=== PATIENT | female | born 1995 | race Caucasian/White ===

== ENCOUNTER → 2017-11-29 13:24 | Outpatient (CLI) | payer SELFPAY ==
[2017-11-29 17:34] LABS: Chlamydia Trachomatis by PCR Negative (Negative); Neisserai gonorrhoeae by PCR Negative (Negative)
[2017-11-29 17:35] LABS: Probe Check PASS; Sample Adequacy Control PASS; Specimen Processing Control PASS
[2017-12-07 12:49] LABS: HPV Reflexed? NOT INDICATED
== END ==
PROVIDERS: Visit Provider Obstetrics & Gynecology
DX: Z12.4 Encounter for screening for malignant neoplasm of cervix (principal); Z11.3 Encounter for screening for infections with a predominantly sexual mode of transmission
CPT/HCPCS: 87491; 87591; 88175; G0145

== ENCOUNTER → 2018-01-12 14:56 | Outpatient (CLI) | payer OTHER, SELFPAY ==
[2018-01-12 16:11] LABS: Color, Urine Yellow (Yellow); Glucose, Dipstick Normal (Normal); Ketone-Dipstick Negative (Negative); Leukocyte Esterase-Dipstick 25 /ul (Negative); Nitrite-Dipstick Negative (Negative); Occult Blood-Urine Negative /ul (Negative); Protein-Dipstick Negative (Negative); Specific Gravity, Urine 1.015 (1.002-1.030); Urine Bilirubin Dipstick Negative (Negative); Urine Clarity Clear (Clear); Urine Urobilinogen Normal (Normal)
[2018-01-12 17:48] LABS: Thyroid Stim Hormone (TSH) 3.05 uIU/mL (0.358-3.74)
[2018-01-12 17:50] LABS: Absolute Lymphocyte Count 1.82 X10^3/ul (0.83-4.51); Absolute Neutrophil Count 7.9 X10^3/uL (2.0-7.7); Basophil# 0.02 X10^3/uL; Basophil% 0.2 % (0-1); Eosinophil# 0.09 X10^3/uL; Eosinophils% 0.9 % (0-5); Hematocrit 33.6 % (37-47); Hemoglobin 11.6 g/dl (12.0-15.0); Lymphocyte # 1.82 X10^3/ul (4.0); Lymphocyte % 17.3 % (19-41); Mean Corp Hgb Conc 34.5 g/gl (32-36); Mean Corpuscular Hgb 30.5 pg (27.0-32.0); Mean Corpuscular Volume 88.4 fL (81-99); Monocyte# 0.67 X10^3/uL; Monocyte% 6.4 % (0-10); Platelet Count 257 K/mm3 (150-450); RBC Distribution Width CV 12.7 % (11.6-14.6); RBC Distribution Width SD 39.3 fl (35.1-43.9); White Blood Count 10.5 K/mm3 (4.4-11.0)
[2018-01-12 18:09] LABS: POSITIVE COUNT NO; POSITIVE DIFFERENTIAL NO; POSITIVE MORPHOLOGY NO
[2018-01-12 18:28] LABS: HIV - WCH Non-Reactive (Nonreactive); Rubella IgG 47.7 IU/mL
[2018-01-15 11:10] LABS: HEPATITIS B SURFACE AG Negative (Negative); Hep C Antibodies <0.1 s/co ratio (0.0-0.9)
[2018-01-19 03:49] LABS: Prenatal RPR NONREACTIVE (NONREACTIVE)
== END ==
PROVIDERS: Visit Provider Obstetrics & Gynecology
DX: Z34.82 Encounter for supervision of other normal pregnancy, second trimester (principal)
CPT/HCPCS: 36415; 81002; 84443; 85025; 86703; 86762; 86803; 87340

== ENCOUNTER → 2018-04-03 10:09 | Outpatient (CLI) | payer OTHER, SELFPAY ==
[2018-04-03 13:59] LABS: Hematocrit 32.5 % (37-47); Hemoglobin 10.8 g/dl (12.0-15.0); Mean Corp Hgb Conc 33.2 g/gl (32-36); Mean Corpuscular Hgb 31.2 pg (27.0-32.0); Mean Corpuscular Volume 93.9 fL (81-99); Platelet Count 250 K/mm3 (150-450); RBC Distribution Width CV 12.8 % (11.6-14.6); RBC Distribution Width SD 42.4 fl (35.1-43.9); Red Blood Count 3.46 M/mm3 (4.2-5.4); White Blood Count 10.9 K/mm3 (4.4-11.0)
[2018-04-03 14:05] LABS: Glucose Challenge Gest 1H 50g 70 mg/dL (70-140)
[2018-04-03 14:08] LABS: Scan Indicated on CBC? Y/N NO
== END ==
PROVIDERS: Visit Provider Obstetrics & Gynecology
DX: Z34.82 Encounter for supervision of other normal pregnancy, second trimester (principal)
CPT/HCPCS: 36415; 82950; 85027

== ENCOUNTER → 2018-06-01 14:51 | Outpatient (CLI) | payer OTHER, SELFPAY | PROVIDERS: Visit Provider Obstetrics & Gynecology | DX: Z36.85 Encounter for antenatal screening for Streptococcus B (principal) | CPT/HCPCS: 87081 ==

== ENCOUNTER 2018-07-09 20:01 | Inpatient (IN) | payer SELFPAY ==
[2018-07-09 20:28] VITALS: BMI 28.0
[2018-07-09] MEDS: Lactated Ringers 1,000 ML 50 ML IV (21:00)
[2018-07-09 21:17] LABS: Hematocrit 32.8 % (37-47); Mean Corp Hgb Conc 33.5 g/gl (32-36); Mean Corpuscular Hgb 30.7 pg (27.0-32.0); Mean Corpuscular Volume 91.6 fL (81-99); Mean Platelet Vol. 10.2 fl (6.2-12.0); Platelet Count 241 K/mm3 (150-450); RBC Distribution Width CV 12.6 % (11.6-14.6); RBC Distribution Width SD 42.2 fl (35.1-43.9); Red Blood Count 3.58 M/mm3 (4.2-5.4); Scan Indicated on CBC? Y/N NO; White Blood Count 13.2 K/mm3 (4.4-11.0)
[2018-07-09] MEDS: Oxytocin 30 units/NS 500 ml 30 UNITS/500 ML IV.SOLN IV (21:26)
--- NOTE | 2018-07-09 23:37 | PCM.PN.BLA ---
Progress Note 41 4/7 wk EGA by first trimester sono. Induction 2/2 postdates and anhydramnios on sono. Pitocin at 1 mIU/min EFM: 130-140s min to avg variability. Accels to 160s. Occasional quick variable to 110 no deep variables noted. ? maternal HR with intermittent tracing occasionally noted. UCs irregular with UC q 8-10 min , some prolonged UCs noted. A/P: 41 4/7 wk induction. postdates and anhydramnios on sono 07/09/18. Plan low dose pitocin overnight. AROM in AM. plans no epidural. Watch tolerance of labor. Deep variable on NST in ofc. Gr 3 placenta. continue induction.
[2018-07-10] MEDS: Lactated Ringers 1,000 ML 50 ML IV ×2 (03:00→06:56)
--- NOTE | 2018-07-10 04:45 | PCM.PN.BLA ---
Progress Note PROGRESS NOTE Induction 41 5/7 wk Gr 3 placenta, anhydramnios Pitocin remains at 1 mIU/min overnight EFM 120-130s , avg variability. Accelerations noted. Early decelerations, occasional quick variable to 90-100 bpm less than 10 sec UCs q 8-11 but some prolonged, lasting 3-5 mins Cx : no recent exam A/P: 41 5/7 wk induction postdates, Gr 3 placenta. anhydramnios. Continue induction. Pitocin per protocol. AROM.
--- NOTE | 2018-07-10 07:53 | OB.TRI.PN ---
Progress Notes Date of Service: 07/10/18 Progress Note: 41 5/7 wk induction. Anhydramnios, Gr 3 placenta Not sure she wants AROM. Advised will need less pitocin if AROM. If prefers no AROM, ok to defer this. Benefit of progression of labor discussed. Slept a few hrs last night. Able to rest through tightenings. AVSS Pitocin at 7 mIU/min EFM 120-130s avg variability. Accels. Occasional quick variable to 100 less than 10 sec UCs q 5 min at present. CX: /midposition, moderately firm. A/P: 41 5/7 wk induction for postdates, anhydramnios. Low dose Pitocin overnight to begin induction. EFM overnight reassuring, occasional early and occasional variables but none as deep as VD in ofc on NST there. - Pt and spouse disputing EDC throughout , and at appt in ofc yesterday. Reviewed EDC by first trimester sono as most accurate and this was off by 1 wk from her LMP EDC. EDC 06/28/18 - Advised again - placenta is post-mature and no fluid. Placenta not functioning as it would have prior to EDC. This may compromise baby's ability to tolerate labor. Reassuring strip overnight and no evidence of compromise at present, EFM reassuring. - Offered AROM : Undecided. Stepped out to allow this couple time to consider. Meanwhile, inc Pitocin per protocol. - Watch progress, descent, and tolerance of labor. Laboratory Studies: Laboratory Tests 07/09/18 07/09/18 Range/Units 21:00 21:00 WBC 13.2 H (4.4-11.0) K/mm3 RBC 3.58 L (4.2-5.4) M/mm3 Hgb 11.0 L (12.0-15.0) g/dl Hct 32.8 L (37-47) % MCV 91.6 (81-99) fL MCH 30.7 (27.0-32.0) pg MCHC 33.5 (32-36) g/gl RDW 12.6 (11.6-14.6) % RDW Differential 42.2 (35.1-43.9) fl Plt Count 241 (150-450) K/mm3 MPV 10.2 (6.2-12.0) fl Blood Type A POSITIVE Antibody Screen NEGATIVE
--- NOTE | 2018-07-10 08:41 | PCM.PN.BLA ---
Progress Note ADDENDUM: Pt and spouse decided no AROM AVSS Pitocin 7 mIU/min EFM 130-140s with avg variability. Accels. Two lates, following one probable deceleration lasting up to 5 min with intermittent return and intermittent tracing with onset after UC. UCs q 4 min at times. A/P: 41 5/7 wk postdates . Gr 3 placenta and anhydramnios. Position changes as first step and if fetus continues with lates to C/S.
--- NOTE | 2018-07-10 12:29 | PCM.PN.BLA ---
Progress Note LABOR INDUCTION 41 5/7 wk anhydramnios. Gr 3 placenta Appears tired, able to rest through UCs. Reportedly described to RN at 1/10 on pain scale. AVSS pitocin at 14 mIU/min, now inc to 16 mIU/min EFM 120-130s with accels. accels periods of inc variability. Occasional lates, Variables to 90-100 bpm lasting from 10-30 sec Overall category I , reassuring UCs irreular q 2-7 mins with some coupling and spacing CX: /-3 no change from admission yesterday evening A/P: 41 5/7 wk induction of labor postdates, anhydramnios. Gr 3 placenta. Inadequate UCs. Recommend AROM. Pt uncertain and still refusing AROM. Advised may continue pitocin up to 20 mIU/min. no progress made up to this point.
--- NOTE | 2018-07-10 12:53 | PCM.PN.BLA ---
Progress Note ADDENDUM: pain 1-2/10 pain score AVSS pitocin at 16 mIU/min CX: 3/75/-3 midposition AROM. minimal ? fluid No meconium noted. A/P: 41 5/7 wk induction Gr 3 placenta, anhydramnios. Agreed to AROM after multiple discussions. Advised pt of potential placement of IUPC for monitoring UCs or Scalp lead for FHR prn. Inadequate labor now. Advised of potential meconium: reviewed why this may be present, and advised if meconium then peds present for delivery. May require eval of baby prior to skin to skin. Advised of potential for failed induction and for C/S delivery. Continue pitocin for now. Watch tolerance, progress of labor.
--- NOTE | 2018-07-10 17:27 | PCM.PN.BLA ---
Progress Note Induction 41 5/7 wk. anhydramnios. Gr 3 placenta In tub for pain relief, 5-6 10 painscale. Moaning through AVSS Pitocin now decreased to 8 mIU/min EFM 120-130s avg variability. Accels. variables with quick return UCs q 1-4 mins CX: 6 cm per last RN check. thin A/P: 41 5/7 wk labor induction Gr 3 placenta, anhydramnios. Small spot ? meconium on pad since AROM Continue labor. Reminded spouse that options for pain relief and to inform staff if desires other than tub.
[2018-07-10] MEDS: Oxytocin 30 units/NS 500 ml 30 UNITS/500 ML IV.SOLN 334 UNITS IV (20:50)
--- NOTE | 2018-07-10 21:01 | PCM.DCVAG ---
Discharge Diet: No Restrictions Discharge Activity: May Shower, May Take a Tub Bath May resume sexual activity in: 4-6 weeks Additional Activity Instructions:: Nothing in the vagina for 4-6 weeks. You may return to work/school in 6 weeks. Additional Instructions: If you experience any of the following, contact your healthcare provider. Bleeding that soaks a pad every hour for 2 hours Fever 100.4 or higher Unrelieved abdominal pain Problems urinating (including inability to urinate or burning while urinating). Visual changes Severe headache Flu-like symptoms Pain or redness in one of both of your breasts Pain, warmth, tenderness or swelling in your legs, especially the calf area Frequent nausea and vomiting Symptoms of depression or anxiety If you experience any of the following, call 911 or go to the nearest Emergency Room. Chest pain Problems breathing Seizure activity Partial or complete paralysis of a body part, slurred speech, weakness or drooping of the face, or a sudden inability to walk or hold your balance Allergies/Adverse Reactions: Allergies No Known Allergies Allergy (Verified 07/09/18 22:02) Medications to take at Discharge Ferrous Sulfate [Iron] 325 mg PO DAILY 07/09/18 Vits [Prenatabs FA] 1 tablet PO DAILY 07/09/18 Please Follow Up With: Lydia Austin MD - [phone] When: Call to make an appointment with your doctor in 6 weeks. Test Results: Test results from this visit will be discussed in further detail at your follow-up appointment, if applicable. Proposed Discharge Date: 07/12/18
--- NOTE | 2018-07-10 21:02 | DCINST_ITS ---
Discharge Diet: No Restrictions Discharge Activity: May Shower, May Take a Tub Bath May resume sexual activity in: 4-6 weeks Additional Activity Instructions:: Nothing in the vagina for 4-6 weeks. You may return to work/school in 6 weeks. Additional Instructions: If you experience any of the following, contact your healthcare provider. * Bleeding that soaks a pad every hour for 2 hours * Fever 100.4 or higher * Unrelieved abdominal pain * Problems urinating (including inability to urinate or burning while urinating). * Visual changes * Severe headache * Flu-like symptoms * Pain or redness in one of both of your breasts * Pain, warmth, tenderness or swelling in your legs, especially the calf area * Frequent nausea and vomiting * Symptoms of depression or anxiety If you experience any of the following, call 911 or go to the nearest Emergency Room. * Chest pain * Problems breathing * Seizure activity * Partial or complete paralysis of a body part, slurred speech, weakness or drooping of the face, or a sudden inability to walk or hold your balance Allergies/Adverse Reactions: Allergies No Known Allergies Allergy (Verified 07/09/18 22:02) Medications to take at Discharge Ferrous Sulfate [Iron] 325 mg PO DAILY 07/09/18 Vits [Prenatabs FA] 1 tablet PO DAILY 07/09/18 Please Follow Up With: Lydia Austin MD - [phone] When: Call to make an appointment with your doctor in 6 weeks. Test Results: Test results from this visit will be discussed in further detail at your follow- up appointment, if applicable. Proposed Discharge Date: 07/12/18
--- NOTE | 2018-07-10 21:02 | PCM.OPRPT ---
Vaginal Delivery Maternal Presentation: Medically Indicated Induction 41 4/7 wk EGA induction Anhydramnios, Gr 3 placenta Method of Induction: Pitocin, Amniotomy Medical Reason for Induction: Post term Amniotic Membrane Rupture Type: Artificial Amniotic Fluid Description: - - very scant spot, ? meconium Final BEN: 06/28/18 Final BEN Source: [place] <20 weeks Gestational age: 41 Weeks and 5 Days doctor who attended delivery (if requested by OB): Jelena Lind Date of Procedure: 07/10/18 Pre-Operative Diagnosis: 41 5/7 wk induction Post-Operative Diagnosis: same Surgery/ Procedure Performed: Vacuum Assisted Vaginal Delivery Description of Procedure: [place] vacuum assisted vaginal delivery at +2 station. due to FHR deceleration, bradycardia with intermittent return. O2 on and pitocin off for last pushing. Two pulls into green zone resulted in delivery of vtx. Shoulders delivered spont. No nuchal cord. Baby with grimace and cry to maternal abdomen for attention by Dr Lind present for delivery 2/2 meconium spot after AROM. (oligo/anhydramnios) PP exam: midline episiotomy without extension. repaired to hemostatic and intact under 1% lidocaine local 10 cc. No other lacerations EBL 350 cc Placenta delivered by spont expulsion, 3V cord, normal appearing, calcified/post-mature. Presentation: Vertex Placental Delivery Description: Spontaneous, Expressed Cord Vessel Description: 3 Vessels Cord Gases drawn per routine: ABG, VBG Cord Entanglement: None Estimated Blood Loss: 350 A gender: Male (1 minute): 8 (5 minute): 9 Episiotomy Description: Midline, 2nd degree Laceration: None Medications given after delivery: IV Pitocin Complications: None
[2018-07-10] MEDS: Oxytocin 30 units/NS 500 ml 30 UNITS/500 ML IV.SOLN 167 UNITS IV (21:20)
[2018-07-10] MEDS: Ibuprofen 600 MG Tablet PO (22:04)
[2018-07-10] MEDS: 0.9% Saline Lock 10 ML Syringe IV (22:22)
[2018-07-11] VITALS: BP 129/91; PULSE 120; RESP 14; TEMP 36.4
[2018-07-11 04:15] VITALS: BP 125/82; PULSE 75; RESP 16; TEMP 36.7; O2SAT 95
[2018-07-11 04:32] LABS: Hematocrit 31.9 % (37-47); Hemoglobin 10.7 g/dl (12.0-15.0); Mean Corp Hgb Conc 33.5 g/gl (32-36); Mean Corpuscular Hgb 30.9 pg (27.0-32.0); Mean Corpuscular Volume 92.2 fL (81-99); Mean Platelet Vol. 9.8 fl (6.2-12.0); Platelet Count 251 K/mm3 (150-450); RBC Distribution Width CV 12.3 % (11.6-14.6); RBC Distribution Width SD 39.8 fl (35.1-43.9); Red Blood Count 3.46 M/mm3 (4.2-5.4); White Blood Count 22.3 K/mm3 (4.4-11.0)
[2018-07-11 04:41] LABS: Scan Indicated on CBC? Y/N NO
[2018-07-11] MEDS: Ibuprofen 600 MG Tablet PO ×2 (05:52→21:03)
--- NOTE | 2018-07-11 08:00 | PCM.PN.OB ---
Subjective: PPD#1 Doing OK. Ibuprofen prn pain. Resting now. No c/o. Breast feeding. - Physical Exam General: Alert, Oriented x3, Cooperative, No apparent distress HEENT: Atraumatic Neck: Supple Abdomen: Soft - Fundus firm NT 1-2 cm inferior to umbilicus Neurological: Cranial nerves II-XII grossly intact Psych/Mental Status: Normal Affect Vital Signs Temp Pulse Resp BP Pulse Ox 98.0 F 75 16 125/82 H 95 07/11/18 04:15 07/11/18 04:15 07/11/18 04:15 07/11/18 04:15 07/11/18 04:15 Oxygen Delivery Method Room Air Weight: 74.2 kg Body Mass Index (BMI) 28.0 Intake and Output for Last 24 Hours 07/09/18 07/10/18 07/11/18 23:59 23:59 23:59 Intake Total 2876 / 2876 Output Total 1800 / 1800 1200 / 1200 Balance 1076 / 1076 -1200 / -1200 Laboratory Tests Past 24 Hrs 07/11/18 04:20 WBC 22.3 H RBC 3.46 L Hgb 10.7 L Hct 31.9 L MCV 92.2 MCH 30.9 MCHC 33.5 RDW 12.3 RDW Differential 39.8 Plt Count 251 MPV 9.8 Medical Necessity - Tobacco Use Smoking Status: Never smoker Assessment/Plan PPD#1 Induction 41 5/7 wk anhydramnios. Gr3 placenta Stable pp. continue care. Plans to stay today.
[2018-07-11 08:30] VITALS: BP 127/81; PULSE 78; RESP 18; TEMP 36.4
[2018-07-11 12:37] VITALS: BP 125/77; PULSE 80; RESP 18; TEMP 37.2
[2018-07-11 16:00] VITALS: BP 119/80; PULSE 87; RESP 18; TEMP 36.5
[2018-07-11 21:00] VITALS: BP 141/89; BP 152/89; PULSE 77; RESP 16; TEMP 36.9; O2SAT 98
[2018-07-12 02:00] VITALS: BP 111/75; PULSE 73; RESP 18; TEMP 36.7; O2SAT 99
--- NOTE | 2018-07-12 07:52 | PCM.PN.OB ---
Subjective: PPD#2 induction of labor Anhydramnios 41 5/7 wks. Doing well. Motrin prn pain. Asking about pain with nursing, uterine cramping Milk not in yet. Plans f/u with Dr. Arellano in [place] for baby. Baby cluster feeding, but did send baby to nursery last night to get some rest - Physical Exam General: Alert, Oriented x3, Cooperative, No apparent distress HEENT: Atraumatic Psych/Mental Status: Normal Affect Vital Signs Temp Pulse Resp BP Pulse Ox 98.1 F 73 18 111/75 99 07/12/18 02:00 07/12/18 02:00 07/12/18 02:00 07/12/18 02:00 07/12/18 02:00 Oxygen Delivery Method Room Air Weight: 74.2 kg Body Mass Index (BMI) 28.0 Intake and Output for Last 24 Hours 07/10/18 07/11/18 07/12/18 23:59 23:59 23:59 Intake Total 2876 / 2876 Output Total 1800 / 1800 1200 / 1200 Balance 1076 / 1076 -1200 / -1200 Medical Necessity - Tobacco Use Smoking Status: Never smoker Assessment/Plan PPD#2 Induction 41 5/7 wk anhydramnios. Gr3 placenta Stable pp. Dischg home. RTO in 6 wk for PP check.
[2018-07-12 08:25] VITALS: BP 124/92; PULSE 84; RESP 18; TEMP 36.6; O2SAT 96
[2018-07-12] MEDS: Ibuprofen 600 MG Tablet PO (09:22)
[2018-07-12] MEDS: Senna/Docusate Sodium 1 Tablet PO ×2 (09:23→09:28)
[2018-07-12 13:46] VITALS: BP 120/86; PULSE 83; RESP 14; TEMP 36.2
--- NOTE | 2018-07-17 18:50 | NURSING ---
follow up phone call complete. Patient has no complaints physically or emotionally. States baby is eating well and denies services at this time. was very satisfied with her care and has no questions or concerns at this time
== END 2018-07-12 14:35 | disposition home or self-care (01) | DRG 806 ==
PROVIDERS: Admitting Provider Obstetrics & Gynecology; Referring Provider Obstetrics & Gynecology; Visit Provider Obstetrics & Gynecology
DX: O48.0 Post-term pregnancy (principal); O41.03X0 Oligohydramnios, third trimester, not applicable or unspecified; Z37.0 Single live birth; Z3A.41 41 weeks gestation of pregnancy; O76 Abnormality in fetal heart rate and rhythm complicating labor and delivery; O77.1 Fetal stress in labor or delivery due to drug administration; O70.1 Second degree perineal laceration during delivery; O43.893 Other placental disorders, third trimester
CPT/HCPCS: 59025; 59050; 85027; 86850; 86900; 99218; J7120; A4216; G0378